=== PATIENT | male | born 1990 | race Caucasian/White ===

== ENCOUNTER 2018-11-04 02:58 | Emergency (ER) | payer OTHER ==
[2018-11-04 03:00] VITALS: BP 127/82
[2018-11-04] MEDS ORDERED: PENI500T PO (03:31)
[2018-11-04] MEDS ORDERED: IBUP800T19 PO (03:31)
[2018-11-04] MEDS ORDERED: HYDR-3165 PO (03:31)
--- NOTE | 2018-11-04 03:34 | ED.ADGEN ---
Past History Past Medical History: Other Past Surgical History: Other Alcohol Use: Occasionally Drug Use: None Adult General Chief Complaint Chief Complaint dental pain HPI HPI 28 years old male presented to the emergency department with the dental pain in the left lower side started 2 days ago Review of Systems Review of Systems Constitutional: Denies fever or chills [] Eyes: Denies change in visual acuity, redness, or eye pain [] HENT: Denies nasal congestion or sore throat [] Respiratory: Denies cough or shortness of breath [] Cardiovascular: No additional information not addressed in HPI [] GI: Denies abdominal pain, nausea, vomiting, bloody stools or diarrhea [] : Denies dysuria or hematuria [] Musculoskeletal: Denies back pain or joint pain [] Integument: Denies rash or skin lesions [] Neurologic: Denies headache, focal weakness or sensory changes [] Endocrine: Denies polyuria or polydipsia [] All other systems were reviewed and found to be within normal limits, except as documented in this note. Current Medications Current Medications Current Medications Medications (Trade) Dose Ordered Sig/Laura Start Time Stop Time Status Last Admin Dose Admin Acetaminophen/ Hydrocodone Bitart (Lortab 5/325) 2 tab 1X ONCE 11/04/18 03:30 11/04/18 03:31 UNV Ibuprofen (Motrin) 600 mg 1X ONCE 11/04/18 03:30 11/04/18 03:31 UNV Allergies Allergies Allergies Coded Allergies Type Severity Reaction Last Updated Verified No Known Drug Allergies 11/04/18 No Physical Exam Physical Exam Constitutional: Well developed, well nourished, no acute distress, non-toxic appearance. [] HENT: Normocephalic, atraumatic, bilateral external ears normal, oropharynx moist, no oral exudates, nose normal. [dental abscess] Eyes: PERRLA, EOMI, conjunctiva normal, no discharge. [] Neck: Normal range of motion, no tenderness, supple, no stridor. [] Cardiovascular:Heart rate regular rhythm, no murmur [] Lungs & Thorax: Bilateral breath sounds clear to auscultation [] Abdomen: Bowel sounds normal, soft, no tenderness, no masses, no pulsatile masses. [] Skin: Warm, dry, no erythema, no rash. [] Back: No tenderness, no CVA tenderness. [] Extremities: No tenderness, no cyanosis, no clubbing, ROM intact, no edema. [] Neurologic: Alert and oriented X 3, normal motor function, normal sensory function, no focal deficits noted. [] Psychologic: Affect normal, judgement normal, mood normal. [] Current Patient Data Vital Signs Vital Signs Date Time Temp Pulse Resp B/P (MAP) Pulse Ox O2 Delivery O2 Flow Rate FiO2 11/04/18 03:00 97.9 59 18 99 Room Air EKG EKG [] Radiology/Procedures Radiology/Procedures [] Course & Med Decision Making Course & Med Decision Making Pertinent Labs and Imaging studies reviewed. (See chart for details) [] Final Impression Final Impression [] Problems: (1) Dental abscess Dragon Disclaimer Dragon Disclaimer This electronic medical record was generated, in whole or in part, using a voice recognition dictation system. ДМИТРИЙ PAYTON MD Nov 04, 2018 03:34
[2018-11-04] MEDS ORDERED: HYDROcodone/APAP 5/325MG 1 TAB TABLET ONE (03:35)
[2018-11-04] MEDS ORDERED: HYDROcodone/APAP 5/325MG 1 TAB TABLET PO ONE (04:00)
[2018-11-04] MEDS ORDERED: IBUPROFEN 600 MG TABLET. PO ONE (04:00)
== END 2018-11-04 03:40 | disposition home or self-care (01) ==
LOC: ER 02:58
DX: K04.7 Periapical abscess without sinus (principal)
CPT/HCPCS: 99283

== ENCOUNTER 2019-04-11 19:07 | Emergency (ER) | payer OTHER ==
[~2019-04-11] VITALS: Ht 177.8 cm; Wt 90.7 kg
[~2019-04-11 19:07] MED LIST: HYDR-3165 PO; IBUP800T19 PO; PENI500T PO
--- NOTE | 2019-04-11 19:18 | ED.ADGEN ---
Past History Past Medical History: Other Past Surgical History: Other Smoking: Quit Less Than 1 Year Alcohol Use: Occasionally Drug Use: None Adult General Chief Complaint Chief Complaint ".. I got another bad tooth.. I am going to have to get fixed.. it is the one on the Rt. upper in the back..." ( 16) HPI HPI Patient is a 28 year old male who presents with above hx and complaints of dental pain at tooth 16. Pt. recently has fractured crown of tooth. Patient has other areas of dental decay. No trismus. No adenopathy. No facial swelling. Has good bite. Patient seen previously in the emergency department for dental decay on 11/04/2014. Patient has quit smoking. No recent travel or specific ill contacts. No history immunosuppression. Review of Systems Review of Systems Constitutional: Denies fever or chills [] Eyes: Denies change in visual acuity, redness, or eye pain [] HENT: Denies nasal congestion or sore throat []complaints of dental pain Respiratory: Denies cough or shortness of breath [] Cardiovascular: No additional information not addressed in HPI [] GI: Denies abdominal pain, nausea, vomiting, bloody stools or diarrhea [] : Denies dysuria or hematuria [] Musculoskeletal: Denies back pain or joint pain [] Integument: Denies rash or skin lesions [] Neurologic: Denies headache, focal weakness or sensory changes [] Endocrine: Denies polyuria or polydipsia [] All other systems were reviewed and found to be within normal limits, except as documented in this note. Family History Family History Noncontributory Current Medications Current Medications Current Medications Medications (Trade) Dose Ordered Sig/Laura Start Time Stop Time Status Last Admin Dose Admin Cephalexin HCl (Keflex) 250 mg STK-MED ONCE 04/11/19 19:27 04/11/19 19:28 DC Hydrocodone Bitartrate/ Ibuprofen (Vicoprofen 7.5-200) 1 tab STK-MED ONCE 04/11/19 19:28 04/11/19 19:29 DC Allergies Allergies Allergies Coded Allergies Type Severity Reaction Last Updated Verified No Known Drug Allergies 11/04/18 No Physical Exam Physical Exam Constitutional: Moderate acute distress, non-toxic appearance. [] HENT: Normocephalic, atraumatic, bilateral external ears normal, oropharynx moist, no oral exudates, nose normal. []Multiple areas of dental decay. Localizes pain at tooth 16 at area of dental fracture. No trismus no adenopathy Eyes: PERRLA, EOMI, conjunctiva normal, no discharge. [] Neck: Normal range of motion, no tenderness, supple, no stridor. [] Cardiovascular:Heart rate regular rhythm, no murmur [] Lungs & Thorax: Bilateral breath sounds equal at apex with few scattered wheezes on auscultation [] Abdomen: Bowel sounds normal, soft, no tenderness, no masses, no pulsatile masses. [] Skin: Warm, dry, no erythema, no rash. [] Back: No tenderness, no CVA tenderness. [] Extremities: No tenderness, no cyanosis, no clubbing, ROM intact, no edema. [] Neurologic: Alert and oriented X 3, normal motor function, normal sensory function, no focal deficits noted. [] Psychologic: Affect anxious, judgement normal, mood normal. [] Current Patient Data Vital Signs Vital Signs Date Time Temp Pulse Resp B/P (MAP) Pulse Ox O2 Delivery O2 Flow Rate FiO2 04/11/19 19:10 97.9 75 18 97 Room Air EKG EKG [] Radiology/Procedures Radiology/Procedures [] Course & Med Decision Making Course & Med Decision Making Pertinent Labs and Imaging studies reviewed. (See chart for details). Must see a dentist or dental surgeon. Take Tylenol and ibuprofen for pain. Take Keflex 500 mg 3 times a day. For marked pain may take Vicoprofen up 3 times a day. Must see a dentist. [] Final Impression Final Impression 1. Dental Pain- (16)[] Dragon Disclaimer Dragon Disclaimer This electronic medical record was generated, in whole or in part, using a voice recognition dictation system. Discharge Summary Visit Information Final Diagnosis Problems Medical Problems: (1) Pain due to dental caries Status: Acute (2) Pain, dental Status: Acute Brief Hospital Course Allergies Allergies Coded Allergies Type Severity Reaction Last Updated Verified No Known Drug Allergies 11/04/18 No Vital Signs Vital Signs Date Time Temp Pulse Resp B/P (MAP) Pulse Ox O2 Delivery O2 Flow Rate FiO2 04/11/19 19:10 97.9 75 18 97 Room Air Brief Hospital Course Mr. Vo is a 28 old male who presented with dental caries and pain . Discharge Information Condition at Discharge: Improved, Stable Disposition/Orders: D/C to Home Dischare Medications Current Medications Hydrocodone Bitartrate/ Ibuprofen (Vicoprofen 7.5-200) 2 tab 1X ONCE PO Last administered on 04/11/19at 19:31; Admin Dose 2 TAB; Start 04/11/19 at 19:30; Sto p 04/11/19 at 19:31; Status DC Cephalexin HCl (Keflex) 500 mg 1X ONCE PO Last administered on 04/11/19at 19:32; Admin Dose 500 MG; Start 04/11/19 at 19:30; Stop 04/11/19 at 19:31; Status DC Cephalexin HCl (Keflex) 250 mg STK-MED ONCE .ROUTE ; Start 04/11/19 at 19:27; Stop 04/11/19 at 19:28; Status DC Hydrocodone Bitartrate/ Ibuprofen (Vicoprofen 7.5-200) 1 tab STK-MED ONCE .ROUTE ; Start 04/11/19 at 19:28; Stop 04/11/19 at 19:29; Status DC Active Scripts Active Hydrocodone-Ibuprofen 7.5-200 (Hydrocodone/Ibuprofen) 1 Each Tablet 1 Tab PO PRN Q6HRS PRN Keflex (Cephalexin) 500 Mg Capsule 500 Mg PO TID 10 Days Ibuprofen 800 Mg Tablet 1 Tab PO TID [place] 5-325 Tablet (Hydrocodone Bit/Acetaminophen) 1 Each Tablet 1 Tab PO TID Penicillin V Potassium 500 Mg Tablet 1 Tab PO QID Dragon Disclaimer This chart was dictated in whole or in part using Voice Recognition software in a busy, high-work load, and often noisy Emergency Department environment. It may contain unintended and wholly unrecognized errors or omissions. RAINA YOUNG MD Apr 11, 2019 19:18
[2019-04-11] MEDS ORDERED: CEPHALEXIN 250 MG CAPSULE ONE (19:27)
[2019-04-11] MEDS ORDERED: CEPH-264 PO (19:28)
[2019-04-11] MEDS ORDERED: HYDROcodon/IBUPROFEN 7.5/200MG 1 TAB TABLET ONE (19:28)
[2019-04-11] MEDS ORDERED: HYDR-1179 PO (19:28)
[2019-04-11] MEDS ORDERED: HYDROcodon/IBUPROFEN 7.5/200MG 1 TAB TABLET PO ONE (19:30)
[2019-04-11] MEDS ORDERED: CEPHALEXIN 250 MG CAPSULE PO ONE (19:30)
== END 2019-04-11 19:41 | disposition home or self-care (01) ==
LOC: ER 19:07
DX: S02.5XXA Fracture of tooth (traumatic), initial encounter for closed fracture (principal); K02.9 Dental caries, unspecified; Z87.891 Personal history of nicotine dependence; X58.XXXA Exposure to other specified factors, initial encounter; Y93.89 Activity, other specified; Y92.89 Other specified places as the place of occurrence of the external cause; Y99.8 Other external cause status
CPT/HCPCS: 99283